=== PATIENT | female | born 1970 | race Asian ===

== ENCOUNTER 2018-05-30 06:00 | Inpatient (IN) | payer OTHER ==
[2018-05-30] MEDS ORDERED: DEXAMETHASONE 4 MG/ML 5 ML INJ (07:00)
[2018-05-30] MEDS ORDERED: DESFLURANE 15 MIN (07:00)
[2018-05-30] MEDS ORDERED: GLYCOPYRROLATE 0.4 MG INJ (07:38)
[2018-05-30] MEDS ORDERED: ROCURONIUM 50 MG INJ (07:38)
[2018-05-30] MEDS ORDERED: ONDANSETRON 4 MG INJ (07:38)
[2018-05-30] MEDS ORDERED: FENTAnyl 50 MCG/ML VIAL (07:38)
[2018-05-30] MEDS ORDERED: NEOSTIGMINE 3 MG/3 ML SYRINGE (07:38)
[2018-05-30] MEDS ORDERED: MIDAZOLAM 1 MG/ML 2 ML INJ (07:38)
[2018-05-30] MEDS ORDERED: PROPOFOL 20 ML (07:38)
[2018-05-30] MEDS ORDERED: CEFAZOLIN 1 GM INJ (07:38)
[2018-05-30] MEDS ORDERED: morphine SULFATE/PF (10 MG/10 ML) INJ (08:04)
[2018-05-30] MEDS ORDERED: ALBUTEROL 0.083% (NEB) 2.5 MG/3 ML AMP HHN (10:00)
[2018-05-30] MEDS ORDERED: NALBUPHINE HCL (10 MG/1 ML) INJ IV (10:00)
[2018-05-30] MEDS ORDERED: FENTAnyl 50 MCG/ML VIAL IV ×3 (10:00)
[2018-05-30] MEDS ORDERED: HYDROmorphONE 1 MG/5 ML IV SYRINGE IV ×3 (10:00)
[2018-05-30] MEDS ORDERED: HYDROmorphONE 0.5 MG/0.5 ML SYG IV ×2 (10:00)
[2018-05-30] MEDS ORDERED: IPRATROPIUM (NEB) 0.5 MG/2.5 ML AMP HHN (10:00)
[2018-05-30] MEDS ORDERED: EPHEDrine SULFATE 50 MG/5 ML SYG IV (10:00)
[2018-05-30] MEDS ORDERED: hydrALAzine 20 MG INJ IV (10:00)
[2018-05-30] MEDS ORDERED: DIPHENHYDRAMINE 50 MG INJ IV (10:00)
[2018-05-30] MEDS ORDERED: NALOXONE (0.4 MG/ML) INJ IV (10:00)
[2018-05-30] MEDS ORDERED: OXYCODONE/ACETAMINOPHEN (5/325) TAB PO ×2 (10:00)
[2018-05-30] MEDS ORDERED: MEPERIDINE 25 MG INJ IV (10:00)
[2018-05-30] MEDS ORDERED: MIDAZOLAM 1 MG/ML 2 ML INJ IV (10:00)
[2018-05-30] MEDS ORDERED: TRIMETHOBENZAMIDE 100 MG/ML VIAL IM ×2 (10:00)
[2018-05-30] MEDS ORDERED: ONDANSETRON 4 MG INJ IV ×2 (10:00)
[2018-05-30] MEDS ORDERED: LABETALOL HCL 20MG INJ IV (10:00)
[2018-05-30] MEDS: LACTATED RINGER'S 1,000 ML IV ×2 (11:19→17:51)
[2018-05-30] MEDS: KETOROLAC 30 MG INJ IV ×2 (12:59→18:53)
[2018-05-30] MEDS: DIPHENHYDRAMINE 50 MG INJ IV (16:13)
[2018-05-30] MEDS: ZOLPIDEM 5 MG TAB PO (21:12)
[2018-05-31] MEDS: LACTATED RINGER'S 1,000 ML IV ×3 (02:45→18:54)
[2018-05-31 05:03] LABS: ADD MAN DIFF? NO
[2018-05-31 05:06] LABS: BASOPHILS % 0.5 % (0.0-2.0); EOSINOPHILS # 0.2 10^3/ul (0.0-0.5); EOSINOPHILS % 3.1 % (0.0-7.0); HEMATOCRIT 35.3 % (37.0-47.0); LYMPHOCYTES # 1.5 10^3/ul (0.8-2.9); LYMPHOCYTES % 26.1 % (15.0-51.0); MEAN CORPUSCULAR HEMOGLOBIN 29.8 pg (29.0-33.0); MEAN CORPUSCULAR HGB CONC 31.2 g/dl (32.0-37.0); MEAN CORPUSCULAR VOLUME 95.7 fl (82.0-101.0); MEAN PLATELET VOLUME 10.6 fl (7.4-10.4); MONOCYTE # 0.4 10^3/ul (0.3-0.9); MONOCYTES % 6.6 % (0.0-11.0); NEUTROPHIL # 3.7 10^3/ul (1.6-7.5); NEUTROPHILS % 63.4 % (39.0-77.0); PLATELET COUNT 210 10^3/UL (140-415); RED BLOOD COUNT 3.69 10^6/ul (4.20-5.40)
[2018-05-31 05:06] LABS: WHITE BLOOD COUNT 5.9 10^3/ul (4.8-10.8)
[2018-05-31 05:32] LABS: ALANINE AMINOTRANSFERASE 24 IU/L (13-69); ALBUMIN/GLOBULIN RATIO 1.03; ALKALINE PHOSPHATASE 50 IU/L (42-121); ANION GAP 7 (5-13); ASPARTATE AMINO TRANSFERASE 23 IU/L (15-46); BILIRUBIN,INDIRECT 0.5 mg/dl (0-1.1); BILIRUBIN,TOTAL 0.5 mg/dl (0.2-1.3); BLOOD UREA NITROGEN 8 mg/dl (7-20); CALCIUM 8.2 mg/dl (8.4-10.2); CARBON DIOXIDE 30 mmol/L (21-31); CHLORIDE 105 mmol/L (97-110); Estimated GFR > 60 mL/min (>60); GLUCOSE 91 mg/dl (70-220); SODIUM 142 mmol/L (135-144); TOTAL PROTEIN 5.9 g/dl (6.1-8.1)
[2018-05-31] MEDS: BISACODYL 10 MG SUPP PR ×3 (06:00→17:12)
[2018-05-31] MEDS: MAGNESIUM HYDROXIDE 30ML CUP PO ×2 (06:09→17:12)
[2018-05-31] MEDS: KETOROLAC 30 MG INJ IV (06:10)
[2018-05-31] MEDS ORDERED: OXYCODONE/ACETAMINOPHEN (5/325) TAB PO (11:00)
[2018-05-31] MEDS ORDERED: ONDANSETRON 4 MG INJ IV (11:00)
[2018-05-31] MEDS: POLYETHYLENE GLYCOL 17 GM PACKET PO (11:00)
[2018-05-31] MEDS: IBUPROFEN 800 MG TAB PO ×2 (11:28→18:26)
[2018-05-31] MEDS: OXYCODONE/ACETAMINOPHEN (5/325) TAB PO ×2 (16:20→20:46)
[2018-06-01] MEDS: LACTATED RINGER'S 1,000 ML IV (03:00)
[2018-06-01 05:03] LABS: ADD MAN DIFF? NO
[2018-06-01 05:13] LABS: WHITE BLOOD COUNT 6.5 10^3/ul (4.8-10.8)
[2018-06-01 05:13] LABS: BASOPHILS % 0.6 % (0.0-2.0); EOSINOPHILS # 0.4 10^3/ul (0.0-0.5); EOSINOPHILS % 5.6 % (0.0-7.0); HEMATOCRIT 34.1 % (37.0-47.0); HEMOGLOBIN 10.7 g/dl (12.0-16.0); LYMPHOCYTES # 2.3 10^3/ul (0.8-2.9); LYMPHOCYTES % 35.7 % (15.0-51.0); MEAN CORPUSCULAR HEMOGLOBIN 30.1 pg (29.0-33.0); MEAN CORPUSCULAR HGB CONC 31.4 g/dl (32.0-37.0); MEAN CORPUSCULAR VOLUME 95.8 fl (82.0-101.0); MEAN PLATELET VOLUME 10.8 fl (7.4-10.4); MONOCYTE # 0.5 10^3/ul (0.3-0.9); MONOCYTES % 7.9 % (0.0-11.0); NEUTROPHIL # 3.2 10^3/ul (1.6-7.5); PLATELET COUNT 214 10^3/UL (140-415); RED BLOOD COUNT 3.56 10^6/ul (4.20-5.40); RED CELL DISTRIBUTION WIDTH 14.1 % (11.5-14.5)
[2018-06-01] MEDS: IBUPROFEN 800 MG TAB PO ×2 (06:41→16:25)
== END 2018-06-01 21:00 | disposition home or self-care (01) | DRG 743 ==
LOC: REC 06:00 → MS1 05-31 17:27
PROVIDERS: Obstetrics & Gynecology
PROC: 0UT90ZL Resection of Uterus, Supracervical, Open Approach (ICD-10-PCS; principal; 2018-05-30 07:30)
PROC: 0UT70ZZ Resection of Bilateral Fallopian Tubes, Open Approach (ICD-10-PCS; 2018-05-30 07:30)
PROC: 0UT20ZZ Resection of Bilateral Ovaries, Open Approach (ICD-10-PCS; 2018-05-30 07:30)
PROC: 0USG0ZZ Reposition Vagina, Open Approach (ICD-10-PCS; 2018-05-30 07:30)
PROC: 0UBC0ZZ Excision of Cervix, Open Approach (ICD-10-PCS; 2018-05-30 07:30)
DX: N92.0 Excessive and frequent menstruation with regular cycle (principal); R10.2 Pelvic and perineal pain; N80.9 Endometriosis, unspecified; Z68.36 Body mass index [BMI] 36.0-36.9, adult; D25.0 Submucous leiomyoma of uterus; N81.89 Other female genital prolapse
CPT/HCPCS: 80053; 84702; 85025; 86850; 86900; 86901; 87086; 88305